=== PATIENT | male | born 1990 | race Asian ===

== ENCOUNTER → 2019-11-03 | Day surgery (SDC) | payer BC ==
--- NOTE | 2019-11-03 12:06 | RAD ---
XR Chest Pa Lat STANDARD HISTORY: Cough and congestion. Left-sided rib pain. COMPARISON: None. FINDINGS: Heart size and mediastinum are within normal limits. The lungs are clear of any infiltrativ e process. There are no significant bony findings. IMPRESSION: No active intrathoracic disease.
== END ==
LOC: SCSRAD 11:49
PROVIDERS: ATTEND Internal Medicine Pulmonary Disease
DX: R05 Cough (principal); R07.81 Pleurodynia
CPT/HCPCS: 71046